=== PATIENT | male | born 1955 | race Caucasian/White ===

== ENCOUNTER 2024-10-04 06:21 | Emergency (ER) | payer MEDICARE, SELFPAY ==
--- NOTE | ~2024-10-04 | CT_ITS ---
CLINICAL HISTORY: left lower jaw tooth infection CT soft tissue neck with contrast Comparison: None Findings: There is an ovoid gas containing peripherally enhancing fluid collection along the left mandible measuring up to 3.3 x 0.8 cm. Reference axial image 38. Surrounding reactive lymph nodes are noted. Pharyngeal mucosal space, parapharyngeal fat, prevertebral tissues, and epiglottis are within normal limits. Salivary glands are within normal limits. No sialoliths. No suspicious thyroid nodules. Sebaceous cyst noted along the posterior neck soft tissues, axial 36. Lung apices are clear. IMPRESSION: There is a 3.3 x 0.8 cm abscess abutting the left aspect of the mandible. This document has been electronically signed by: Armani Patel MD on 10/04/2024 11:44:38
[2024-10-04 06:31] VITALS: BP 127/86; PULSE 96; RESP 18; TEMP 36.8; O2SAT 96; BMI 30.2
--- OUTSIDE RECORDS SUMMARY | 2024-10-04 07:24 | XMS_ITS | Continuity of Care Document ---
Author Organization [facility] Address [address] [place] [address]- Care Team Providers Care Software Sales Representative Name Role Phone Abdulkadir KAY, Kalyn Lombardi Primary Care P liliane [facility]counter [facility] [id number] Date(s): 08/05/24 - 09/04/24 [facility] [address] [place] [phone] Encounter Type: Triage Allergies, Adverse Reactions, Alerts No Known Allergies Immunizations Given and Recorded Vaccine Date Status Refusal Reason pneumococcal 20-valent conjugate vaccine 1 12/04/23 Given influenza virus vaccine, inactivated 2 11/21/21 Gi krishna influenza virus vaccine, inactivated 3 07/12/20 Gi krishna influenza virus vaccine, inactivated 4 05/14/19 Gi krishna influenza virus vaccine, inactivated 08/08/18 Give n influenza virus vaccine, inactivated 06/26/16 Give n influenza virus vaccine, inactivated 06/20/15 Give n influenza virus vaccine, inactivated 06/17/13 Give n SARS-CoV-2 (COVID-19) mRNA BNT-162b2 vac 01/16/21 Recorded SARS-CoV-2 (COVID-19) mRNA BNT-162b2 vac 12/26/20 Recorded tetanus-diphtheria toxoids (Td) 07/02/19 Recorded tetanus/diphtheria/pertussis, acel(Tdap) 07/02/19 Recorded tetanus/diphtheria/pertussis, acel(Tdap) 12/26/15 Given pneumococcal 23-valent vaccine 06/17/13 Given diphtheria-tetanus toxoids (DT) 12/05/04 Given 1Result Comment: PCV 20 [facility] [id number] 2Result Comment: Flu [facility] [id number] 3Result Comment: [facility] [id number] 4Result Comment: [facility] [id number] Medications acetaminophen-oxyCODONE 325 mg-5 mg oral tablet 1, tablet, By Mouth, Every 6 hours, PRN, # 112 tablet, Refills 0, Tot. Refills 0, Maintenance, Pain, Severe, 08/25/24 9:47:00 AM EST, Route to Pharmacy Electronically, [facility] Tablet, Partial fill upon patient request, 08/25/24, 174, cm, 06/01/24 14:44:00 EDT, Height, 90, kg, 02/28/24 7:19:00 EDT, Dry Weight Start Date: 08/25/24 Status: Ordered Quantity: 112.0 Unit: tablet Repeat number: 1 Indication: Low back pain, unspecified atorvastatin 40 mg oral tablet 1 tablet = 40 mg, By Mouth, Daily, # 90 tablet, 1 Refills, Maintenance, 06/01/24 2:58:00 PM EDT, Tablet, [facility], 174, cm, 06/01/24 14:44:00 EDT, Height, 90, kg, 02/28/24 7:19:00 EDT, Dry Weight Start Date: 06/01/24 Status: Ordered Quantity: 90.0 Unit: tablet Repeat number: 2 Invokana 300 mg oral tablet 1 tablet, By Mouth, Daily, # 90 tablet, 1 Refills, Maintenance, 04/21/24 11:18:00 AM EDT, [facility], 174, cm, 02/18/24 12:57:00 EDT, Height, 90, kg, 02/28/24 7:19:00 EDT, Dry Weight Start Date: 04/21/24 Status: Ordered Quantity: 90.0 Unit: tablet Repeat number: 2 Januvia 100 mg oral tablet 1 tablet = 100 mg, By Mouth, Daily, # 90 tablet, 1 Refills, Maintenance, 06/01/24 2:58:00 PM EDT, Tablet, [facility], Partial fill upon patient request if the prescription is for a schedule II opioid drug., 174, cm, 06/01/24 14:44:00 EDT, Height, 90, kg, 02/28/24 7:19:00 EDT, Dry Weight Start Date: 06/01/24 Status: Ordered Quantity: 90.0 Unit: tablet Repeat number: 2 lisinopril 5 mg oral tablet See Instructions, TAKE ONE TABLET BY MOUTH EVERY DAY, # 90 tablet, Refills 1, Tot. Refills 1, 06/01/24 2:58:00 PM EDT, Instructions Replace Required Details, Route to Pharmacy Electronically, [facility], 174, cm, 06/01/24 14:44:00 EDT, Height, 90, kg, 02/28/24 7:19:00 EDT, Dry Weight Start Date: 06/01/24 Status: Ordered Quantity: 90.0 Unit: tablet Repeat number: 2 metFORMIN 1000 mg oral tablet 1 tablet, By Mouth, 2 times a day, # 180 tablet, 3 Refills, Maintenance, 10/07/23 2:24:00 PM EST, [facility], 174, cm, 05/31/23 11:00:00 EDT, Height Start Date: 10/07/23 Status: Ordered Quantity: 180.0 Unit: tablet Repeat number: 4 One Touch Delica Lancets See Instructions, # 50 each, Refills 11, Tot. Refills 11, Maintenance, test once daily for Type 2 DM (E11.9), 02/12/19 2:33:41 PM EDT, Compound Start Date: 02/12/19 Status: Ordered Quantity: 50.0 Unit: each Repeat number: 12 One Touch Ultra 2 Glucose Meter See Instructions, # 1 each, Maintenance, He is to test blood sugar once daily, for type 2 diabetes mellitus, 02/10/21 11:52:00 AM EDT, Compound, 174, cm, 02/10/21 11:36:00 EDT, Height Start Date: 02/10/21 Status: Ordered Quantity: 1.0 Unit: each Repeat number: 1 Problem List Condition Confirmation Course Effective Dates Status H ealth Status Informant Diabetes mellitus, type II Confirmed 05/02/09 Active HTN (hypertension) Confirmed 11/12/08 Active Hyperlipidemia NOS Confirmed 08/29/10 Active Low back pain Confirmed Active Obese class I Confirmed Active Obesity Confirmed 08/29/10 Active Primary osteoarthritis of left hip Confirmed Active [facility] prescription opiate use Confirmed Active Social History Social History Type Response Tobacco Other: Continues to smoke 7 cigarettes per day as of 04/03/2021. Is not ready to stop yet.. Sex Sex Representation Male (finding) Patient Care team information Care Team Personnel Name: Jace DUNCAN, Lauren Grant Position: [facility] PCO Associate Professional Member Role: Primary Care Nurse Name: Kristin Reyes RN Position: [facility] SN RN Member Role: Primary Care Nurse Name: Burton Jaeger RN Position: [facility] RN Member Role: Primary Care Nurse Name: Abdulkadir KAY, Kalyn Lombardi Position: [facility] Associate Professional Member Role: PCP Address: [address] [place] [address]. [address] [place], [place] [address] Telecom: Name: Marcie Mckoy RN Position: [facility] RN Member Role: Primary Care Nurse Care Team Related Persons Name: JASONSUSANA SOTELO Insurance Providers Guarantor name: RENE GRACE Health Plan Information #: 1 Payer: [employer] MEDICARE ADV HMO Member Number: NA Policy Number: NA Group Number: [id number]
--- OUTSIDE RECORDS SUMMARY | 2024-10-04 07:25 | XMS_ITS | Continuity of Care Document ---
Author Organization [facility] Address [address] [place] [address]- Care Team Providers Care Gold Cutter Name Role Phone Abdulkadir KAY, Kalyn Lombardi Primary Care P liliane Encounter [facility] Date(s): 08/16/24 - 09/15/24 [facility] [address] [place] [phone] Encounter Type: Triage Allergies, Adverse Reactions, Alerts [...] (DT) 12/05/04 Given 1Result Comment: PCV 20 [facility][NOTE 3] [id number] 2Result Comment: Flu [facility][NOTE 3] [id number] 3Result Comment: [facility][NOTE 3] [id number] 4Result Comment: [facility][NOTE 3] [id number] Medications acetaminophen-oxyCODONE 325 mg-5 mg oral tablet 1, tablet, By Mouth, Every 6 hours, PRN, # 112 tablet, Refills 0, Tot. Refills 0, Maintenance, Pain, Severe, 08/25/24 9:47:00 AM EST, Route to Pharmacy Electronically, [facility] Tablet, Partial fill upon patient request, 08/25/24, 174, cm, 06/01/24 14:44:00 EDT, Height, 90, kg, 02/28/24 7:19:00 EDT, Dry Weight Start Date: 08/25/24 Status: Ordered Quantity: 112.0 Unit: tablet Repeat number: 1 Indication: Low back pain, unspecified atorvastatin 40 mg oral tablet 1 tablet = 40 mg, By Mouth, Daily, # 90 tablet, 1 Refills, Maintenance, 06/01/24 2:58:00 PM EDT, Tablet, [facility], 174, cm, 06/01/24 14:44:00 EDT, Height, 90, kg, 02/28/24 7:19:00 EDT, Dry Weight Start Date: 06/01/24 Status: Ordered Quantity: 90.0 Unit: tablet Repeat number: 2 Invokana 300 mg oral tablet 1 tablet, By Mouth, Daily, # 90 tablet, 1 Refills, Maintenance, 04/21/24 11:18:00 AM EDT, [facility], 174, cm, 02/18/24 12:57:00 EDT, Height, 90, kg, 02/28/24 7:19:00 EDT, Dry Weight Start Date: 04/21/24 Status: Ordered Quantity: 90.0 Unit: tablet Repeat number: 2 Januvia 100 mg oral tablet 1 tablet = 100 mg, By Mouth, Daily, # 90 tablet, 1 Refills, Maintenance, 06/01/24 2:58:00 PM EDT, Tablet, [facility], Partial fill upon patient request [...] Primary osteoarthritis of left hip Confirmed Active halfway prescription opiate use Confirmed Active Social History Social History Type Response Tobacco Other: Continues to smoke 7 cigarettes per day as of 04/03/2021. Is not ready to stop yet.. Sex Sex Representation Male (finding) Patient Care team information Care Team Personnel Name: Jace DUNCAN, Lauren Grant Position: [facility] PCO Associate Professional Member Role: Primary Care Nurse Name: Kristin Reyes RN Position: [facility] SN RN Member Role: Primary Care Nurse Name: Burton Jaeger RN Position: [facility] RN Member Role: Primary Care Nurse Name: Abdulkadir KAY, Kalyn Lombardi [facility] Associate Professional Member Role: PCP Address: [address] [place] [address]. [address] [place], [place] [address] Telecom: Name: Marcie Mckoy RN Position: [facility] RN Member Role: Primary Care Nurse Care Team Related Persons Name: JASONSUSANA SOTELO Insurance Providers Guarantor name: RENE GRACE Health Plan Information #: 1 Payer: [employer] MEDICARE ADV HMO Member Number: NA Policy Number: NA Group Number: NA
--- NOTE | 2024-10-04 09:31 | ED_ITS ---
HPI - Dental/Oral General Chief complaint: Dental/Oral Stated complaint: left sided tooth abcess Time Seen by Provider: 10/04/24 09:31 Source: patient Mode of arrival: ambulatory Limitations: no limitations History of Present Illness ED Provider: SUNNY BURGOS PA-C HPI Narrative: 68 year old male, current tobacco smoker, with pmhx significant for T2DM presents to the ED today with left lower tooth/ jaw pain and swelling x5 days, worsening this morning. Patient reports he was evaluated by his dentist on Saturday (5 days ago) and diagnosed with an infection his left lower gum line. He was started on amoxicillin which he has been taking with minimal improvement. This morning, he noticed increased swelling/ pain to the area and into his left jaw. On my initial evaluation (approx 2-3 horus post arrival in ED) he states the pain has completely gone away. Denies any discharge from the area. 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 He reports compliance w/ his DM meds. Admits to smoking approx 10 cigarettes daily. Denies fever, chills, headache, dizziness, ear or eye pain, N/V, odynophagia or dysphagia. Related Data Previous Rx's ?Medication ?Instructions ?Recorded clindamycin HCl 150 mg capsule 450 mg (3 x 150 mg) PO Q8H 10 days 10/04/24 #90 caps Allergies Allergy/AdvReac Type Severity Reaction Status Date / Time No Known Allergies Allergy Verified 10/04/24 06:34 Review of Systems 2 Review of Systems: Constitutional: No fever, chills, fatigue, night sweats, weight changes ENT/Mouth: No ear pain, hearing loss, nasal congestion, sinus pain, rhinorrhea, sore throat, +dental pain Eyes: No eye pain, swelling, redness, vision changes, discharge Cardio: No chest pain, palpitations, RODRIGUEZ, orthopnea, peripheral edema Pulm: No SOB, cough, sputum, wheezing, dyspnea, hemoptysis GI: No nausea, vomiting, hematemesis, abdominal pain, diarrhea, constipation, hematochezia, melena : No irregular bleeding, dysuria, frequency, urgency, hesitancy, hematuria, flank pain, urinary flow changes, urinary incontinence or retention MSK: No back pain, neck pain, joint pain, myalgias Skin: No lesions, rashes Neuro: No weakness, numbness, paresthesias, LOC, dizziness, headache Psych: No anxiety/panic, depression, SI/HI, AH/VH All other systems reviewed and are negative. [facility] Past Medical History Attestation statement: The following information was validated with the patient. Source: old records reviewed and nursing notes reviewed Physical Exam 2 Vital Signs: Vital Signs: Last Vital Signs Temp 97.8 F 10/04/24 12:47 Pulse 81 10/04/24 12:47 Resp 16 10/04/24 12:47 BP 113/58 L 10/04/24 12:47 Pulse Ox 95 10/04/24 12:47 O2 Del Method Room Air 10/04/24 12:47 BMI result Body Mass Index 30.2 vital signs stable, afebrile General: Well appearing, in no acute distress. Skin: Warm, dry, intact. No rashes or lesions. Head: Normocephalic, atraumatic. EENT: Hearing is intact b/l. PERRLA. EOM intact. Moist mucous membranes.? + (see photo below) small area of swelli ng noted to left lower jaw. Tongue and lips wnl. multiple dental caries and poor dentition. Left lower gingiva with localized periapical swelling to the with small area of central pointing and palpable fluctuance, slightly ttp. No active bleeding/ discharge. Posterior oropharynx without erythema/edema. Uvula midline. Controlling secretions and speaking in complete sentences. No submandublar, submental, cervical LAD. No anterior neck swelling. Neck: Supple without LAD Cardiac: Chest wall symmetric. RRR. Lungs: Normal respiratory effort without accessory muscle use. CTA bilaterally. Neuro: AOx3. Normal speech. Ambulating with steady gait. Psych: Appropriate mood and affect. Responds appropriately to questions. HEENT: Teeth image: 1. small area of swelling/ erythema with central pointing and palpable fluctuance. no active drainage/ bleeding. Course Course Course Narrative: CBC showing slight leukocytosis to 11.9 without left shift. Elevated inflammatory markers. Chemistry without acute electrolyte abnormality requiring intervention. Patient noted to have an infection to left lower gingiva. CT soft tissues neck showing 3.3 x 0.8 cm abscess abutting the left aspect of the mandible without osseous involvement. There are surrounding reactive lymph nodes. No evidence of Osiel's angina on imaging. On exam, there is a small area of central pointing. I was able to open this with small TB needle and drain approx 1-2 cc of fluid from the area. patient tolerate well and is still endorses 0/10 pain. he is overall well appearing and vitals have remained stable. I feel it is reasonable to discharge him on new antibiotic (clindamycin). Advised to discontinue amoxicillin. He has a follow up appointment with his dentist in 1.5 weeks. advised to contact their office tomorrow morning for follow up. I also educated him on smoking cessation. Patient has remained stable throughout ED visit today. Discussed worrisome signs and symptoms and when to return to the ED. All questions answered at this time. Patient is agreeable with disposition and stable for discharge. Medications Administered Discontinued Medications Generic Name Dose Route Start Last Admin Trade Name Freq PRN Reason Stop Dose Admin Iohexol 100 ml 10/04/24 10:26 10/04/24 10:27 Iohexol 350 Mg/Ml 100 Ml Infus..Btl IV 10/04/24 10:27 75 ml ONCE ONE Administration Medical Decision Making Medical Decision Making [facility] Narrative: 68 year old male, current tobacco smoker, with pmhx significant for T2DM presents to the ED today with left lower tooth/ jaw pain and swelling x5 days, worsening this morning. Vital signs stable, afebrile. on exam, small area of swelling noted to left lower jaw. Tongue and lips wnl. multiple dental caries and poor dentition. Left lower gingiva with localized periapical swelling to the with small area of central pointing and palpable fluctuance, slightly ttp. No active bleeding/ discharge. Posterior oropharynx without erythema/edema. Uvula midline. Controlling secretions and speaking in complete sentences. No submandublar, submental, cervical LAD. No anterior neck swelling. Differential includes dental/ periapical abscess/infection, apthous stomatitis. Unlikely mono, herpes, sialadenitis, sialolithiasis, NCR OPERATOR, retropharyngeal abscess, deep neck infection, osteomyelitis, facial cellulitis/ abscess, lymphoma, ludwigs angina. Plan for pain control and discharge home with antibiotics and dentist follow up. Differential Diagnosis Differential Diagnoses: The differential diagnosis associated with the presentation includes as above. Admission/Observation Not indicated. Lab Data [facility] Lab Attestation statement: I reviewed the patient's lab results. as above. 02/02/25 09:45 10/04/24 09:45 Labs: Lab Results 10/04/24 Range/Units 09:45 WBC 11.9 H (4.8-10.8) X10*3/uL RBC 5.30 (4.60-5.80) X10*6/uL Hgb 15.9 (14.0-18.0) g/dl Hct 48.1 (42.0-52.0) % MCV 90.8 (80.0-98.0) fL MCH 30.0 (27.0-33.0) pg MCHC 33.1 (31.0-36.0) g/dl RDW 13.5 (11.0-16.0) % Plt Count 283 (160-400) X10*3/uL MPV 9.9 (9.4-12.4) fL Immature Gran % (Auto) 0.6 H (0.0-0.4) % Neut % (Auto) 76.1 H (45-73) % Lymph % (Auto) 14.7 L (20-40) % [place] % (Auto) 7.9 (2-11) % Eos % (Auto) 0.4 (0-4) % Baso % (Auto) 0.3 (0-2) % Lymph # (Auto) 1.8 (1.2-4.9) X10*3/uL [place] # (Auto) 0.9 (0.1-1.2) X10*3/uL Eos # (Auto) 0.1 (0.0-0.4) X10*3/uL Baso # (Auto) 0.0 (0.0-0.2) X10*3/uL Abs Immat Gran (auto) 0.07 H (0.00-0.03) X10*3/uL Absolute Neuts (auto) 9.0 H (2.0-8.3) x10*3/uL Absolute Nucleated RBC 0.000 (0.0-0.012) X10*3/uL Nucleated RBC % (auto) 0.0 (0.0-0.2) /100WBC ESR 29 H (0-15) MM/HR Sodium 134 L (135-145) mmol/L Potassium 4.9 (3.3-5.1) mmol/L Chloride 97 (96-108) mmol/L Carbon Dioxide 23 (22-29) mmol/L Anion Gap 19 (12-20) BUN 15 (9-16) mg/dL Creatinine 0.78 (0.5-1.4) mg/dL Estim Creat Clear Calc 103.4 Estimated GFR > 60 Random Glucose 182 H (60-115) mg/dL Calcium 9.9 (8.4-10.2) mg/dL Total Bilirubin 0.7 (0.0-1.0) mg/dL AST 17 (5-37) U/L ALT 21 (0-40) U/L Alkaline Phosphatase 97 (39-117) U/L C-Reactive Protein 2.24 H (< or = 0.50) mg/dL Total Protein 8.9 H (6.5-8.0) g/dL Albumin 4.6 (3.5-5.0) g/dL Independent Interpretation I performed an independent interpretation of an: CT Scan Interpretation: CT soft tissues neck showing small abscess to left lower gum line. Radiology Impression Discussion of test interpretation with radiology: I have reviewed the radiologist's reading. Radiologist Impression: CLINICAL HISTORY: left lower jaw tooth infection CT soft tissue neck with contrast Comparison: None Findings: There is an ovoid gas containing peripherally enhancing fluid collection along the left mandible measuring up to 3.3 x 0.8 cm. Reference axial image 38. Surrounding reactive lymph nodes are noted. Pharyngeal mucosal space, parapharyngeal fat, prevertebral tissues, and epiglottis are within normal limits. Salivary glands are within normal limits. No sialoliths. No suspicious thyroid nodules. Sebaceous cyst noted along the posterior neck soft tissues, axial 36. Lung apices are clear. IMPRESSION: There is a 3.3 x 0.8 cm abscess abutting the left aspect of the mandible. This document has been electronically signed by: Armani Patel MD on 10/04/2024 11:44:38 External Record Review External record reviewed: Inpatient record Prescription Management I considered prescription management with: Antibiotic (clindamycin) Chronic Conditions Patient?s care impacted by: Diabetes and Other (tobacco use) Social Determinants Patient?s care significantly limited by Social Determinants of Health including: Other Social Determinant of Health Procedures Abscess I/D Site: oral Side (if applicable): left Technique: needle aspiration Amount of fluid expressed (mL): 2 Sent for culture/gram staining?: No Irrigation: Yes Packing used?: none Smoking Cessation Time Spent Discussing Smoking Cessation w/Patient (min): 10 Patient Acknowledges Need for Cessation: Yes Critical Care Time Critical Care Time Critical Care Time: No Discharge Plan Discharge Clinical Impression: Gingival abscess Patient Disposition: Home, Self-Care Instructions: Abscess (ED) Additional Instructions: You were evaluated in the ED today for dental infection. Your blood work shows an elevated white blood cell count and elevated inflammatory markers, all indications of an infection. Your blood work was otherwise reassuring. The CT scan of your facial bones/ neck demonstrates a 3.3 x 0.8 cm abscess along the left side of your mandible. There is no involvement of the bone. The abscess was drained today. I advise to your discontinue your current antibiotic (amoxicillin). I will be starting you on a new antibiotic (clindamycin). Please take this as prescribed. Take tylenol and motrin at home for pain/ discomfort. I would like you to call your dentist tomorrow morning to [facility] for outpatient follow up. I advise to to lessen/ discontinue using tobacco products as this can delay healing and make your infection worse. Please return to the ED with any new or worsening symptoms despite treatment, such as fevers, worsening pain/ swelling, increased drainage from the area, difficulty swallowing or speaking. In the case of an emergency call 911. Prescriptions: New clindamycin HCl 150 mg capsule 450 mg PO Q8H 10 Days Qty: 90 0RF Referrals: Kalyn Ward PA [Primary Care Provider] - Interventions: ED Discharge Assessment Last Done: 10/04/24 12:47 Discharge Date/Time: 10/04/24 12:47 Print Language: Comoran
[2024-10-04 09:49] LABS: MANUAL DIFF FLAG NO
[2024-10-04 09:53] VITALS: BP 113/58; PULSE 81; RESP 16; TEMP 36.6; O2SAT 95
[2024-10-04 10:06] LABS: Basophils Percent Auto 0.3 % (0-2); Eosinophils Absolute Auto 0.1 X10*3/uL (0.0-0.4); Eosinophils Percent Auto 0.4 % (0-4); Hematocrit 48.1 % (42.0-52.0); Hemoglobin 15.9 g/dl (14.0-18.0); Imm Gran Abs Auto 0.07 X10*3/uL (0.00-0.03); Imm Gran Pct Auto 0.6 % (0.0-0.4); Lymphocytes Absolute Auto 1.8 X10*3/uL (1.2-4.9); Lymphocytes Percent Auto 14.7 % (20-40); Mean Corpuscular HGB Conc 33.1 g/dl (31.0-36.0); Mean Corpuscular Volume 90.8 fL (80.0-98.0); Mean Platelet Volume 9.9 fL (9.4-12.4); Monocytes Absolute Auto 0.9 X10*3/uL (0.1-1.2); Monocytes Percent Auto 7.9 % (2-11); Neutrophils Percent Auto 76.1 % (45-73); Platelet Count 283 X10*3/uL (160-400); Red Cell Distribution Width 13.5 % (11.0-16.0); White Blood Count 11.9 X10*3/uL (4.8-10.8)
[2024-10-04 10:11] LABS: Alanine Aminotransferase 21 U/L (0-40); Albumin Level 4.6 g/dL (3.5-5.0); Alkaline Phosphatase 97 U/L (39-117); Anion Gap 19 (12-20); Aspartate Amino Transferase 17 U/L (5-37); Bilirubin Total 0.7 mg/dL (0.0-1.0); Blood Urea Nitrogen 15 mg/dL (9-16); C Reactive Protein 2.24 mg/dL (< or = 0.50); Calcium 9.9 mg/dL (8.4-10.2); Carbon Dioxide 23 mmol/L (22-29); Chloride 97 mmol/L (96-108); Creatinine Clr Calc Pharmacy 103.4; Estimated Glomerular Filt Rate > 60; Glucose Random 182 mg/dL (60-115); Potassium 4.9 mmol/L (3.3-5.1); Sodium 134 mmol/L (135-145); Total Protein 8.9 g/dL (6.5-8.0)
[2024-10-04] MEDS: iohexoL 350 MG/ML 100 ML INFUS..BTL IV (10:27)
[2024-10-04 11:09] LABS: Erythrocyte Sedimentation Rate 29 MM/HR (0-15)
[2024-10-04 12:47] VITALS: BP 113/58; PULSE 81; RESP 16; TEMP 36.6; O2SAT 95
== END 2024-10-04 12:47 | disposition home or self-care (01) ==
PROVIDERS: Physician Assistant Medical; Emergency Provider Emergency Medicine; PCP Physician Assistant Medical
DX: K04.7 Periapical abscess without sinus (principal); M54.2 Cervicalgia; R68.84 Jaw pain; F17.210 Nicotine dependence, cigarettes, uncomplicated; Z79.899 Other long term (current) drug therapy
CPT/HCPCS: 36415; 41800; 70491; 80053; 85025; 85652; 86140; 87040; 99284; Q9967

== ENCOUNTER → 2024-10-04 09:36 | Outpatient (BNV) | payer MEDICARE, SELFPAY | PROVIDERS: Emergency Provider Emergency Medicine; PCP Physician Assistant Medical; Visit Provider Radiology Vascular & Interventional Radiology | DX: K12.2 Cellulitis and abscess of mouth (principal) | CPT/HCPCS: 70491 ==